=== PATIENT | female | born 1985 | race Caucasian/White ===

== ENCOUNTER 2017-01-12 13:24 | Inpatient (IN) | payer BC ==
[2017-01-12] VITALS (12 sets, daily range): BP systolic 94–119; BP diastolic 51–78; PULSE 54–70; TEMP 97.5–98.4
[~2017-01-12] VITALS: Ht 175.3 cm; Wt 67.3 kg
[~2017-01-12 13:24] MED LIST: MOTRIN 600600 MG/TAB PO; PERCOCET 325 MG1 TA2 PO
[2017-01-12] MEDS ORDERED: ZOVIRAX400 MG PO (13:53)
[2017-01-12] MEDS ORDERED: PRENATAL MVI (13:54)
[2017-01-12 14:11] LABS: BASO % 0.2 % (0.0-2.0); EOS % 0.1 % (0-4.0); GRAN # 9.6 (1.4-6.5); GRAN % 79.8 % (42.2-75.2); LYMPH # 1.6 (1.2-3.4); LYMPH % 12.9 % (20.0-51.0); MEAN CELL VOLUME 90 fl (80.0-100.0); MEAN CORPUSCULAR HGB CONC 34 g/dl (33.0-37.0); MEAN PLATELET VOLUME 10.9 fl (7.4-10.4); MONO # 0.8 (0.1-0.6); MONO % 6.7 % (1.7-9.3); PLATELET COUNT 180 K/mm3 (130-400); RED BLOOD COUNT 3.41 M/mm3 (4.10-5.30)
[2017-01-12 14:14] LABS: HEMATOCRIT 30.7 % (37.0-47.0); HEMOGLOBIN 10.4 g/dl (12.5-16.0); MEAN CORPUSCULAR HEMOGLOBIN 30 pg (27.0-31.0)
[2017-01-13 04:00] VITALS: BP 103/64; PULSE 61; TEMP 97.6
[2017-01-13] MEDS ORDERED: IBU600 MG PO (09:05)
[2017-01-13] MEDS ORDERED: PERCOCET 325 MG1 TA2 PO (09:06)
[2017-01-13 11:00] VITALS: BP 95/57; PULSE 58; TEMP 97.7
[2017-01-13 16:17] VITALS: BP 92/71; PULSE 58; TEMP 97.1
[2017-01-13 20:00] VITALS: BP 104/61; PULSE 56; TEMP 97.9
[2017-01-14 07:30] VITALS: BP 100/56; PULSE 54; TEMP 98
== END 2017-01-14 12:30 | disposition home or self-care (01) | DRG 775 ==
LOC: LDRO 13:24 → LDR 13:51 → OB 13:51
PROVIDERS: Obstetrics & Gynecology
PROC: 10E0XZZ Delivery of Products of Conception, External Approach (ICD-10-PCS; principal; 2017-01-12)
PROC: 0KQM0ZZ Repair Perineum Muscle, Open Approach (ICD-10-PCS; 2017-01-12)
DX: O48.0 Post-term pregnancy (principal); O70.1 Second degree perineal laceration during delivery; Z3A.40 40 weeks gestation of pregnancy; Z37.0 Single live birth
CPT/HCPCS: J2590; J7120